=== PATIENT | female | born 1955 | race Caucasian/White ===

== ENCOUNTER 2016-02-25 16:59 | Emergency (ER) | payer OTHER ==
[~2016-02-25] VITALS: Wt 63.0 kg
--- NOTE | 2016-02-25 18:15 | RADRPT ---
PROCEDURE: Chest x-ray CLINICAL INDICATION: Cough TECHNIQUE: Chest single view COMPARISON: 03/10/2014 FINDINGS: The heart is normal in size. The pulmonary vessels are normal in caliber. The lungs are clear. Th e costophrenic angles are sharp. The visualized bony thorax is unremarkable. IMPRESSION: No acute cardiopulmonary disease. RPTAT: HH .Jay Rosario MD, Date Time Electronically viewed and signed by .Jay Rosario MD, on 02/25/2016 18:15 .W/
[2016-02-25] MEDS ORDERED: D-ME473S18 PO (18:43)
[2016-02-25] MEDS ORDERED: ACET500C5 PO (18:43)
[2016-02-25] MEDS ORDERED: AZIT250T94 PO (18:43)
--- NOTE | 2016-02-25 18:45 | ERD ---
ER Documentation Chief Complaint Date/Time DATE: 02/25/16 TIME: 18:44 Chief Complaint cough cold and intermittent fevers for the past 3 wks HPI This 61-year-old female presents with a productive cough for last 3 weeks. She is here with her spouse with similar symptoms. She denies fevers, chest pain, vomiting, abdominal pain, diarrhea, neck stiffness. ROS All systems reviewed and are negative except as per history of present illness. Medications Home Meds Active Scripts Acetaminophen* (Tylophen*) 500 Mg Capsule, 1 CAP PO Q6H Y for PAIN AND OR ELEVATED TEMP, #15 CAP Prov:ROBYN GREGORY MD 02/25/16 Dextromethorphan Hb-Promethazine Hcl (Promethazine DM Syrup) 473 Ml Syrup, 5 ML PO Q6H, #4 OZ Prov:ROBYN GREGORY MD 02/25/16 Azithromycin* (Zithromax*) 250 Mg Tablet, 250 MG PO .ZPACK DIRECTED, #6 TAB TAKE 500 MG (2 TABS) THE FIRST DAY THEN 250 MG (1 TAB) DAYS 2-5 Prov:ROBYN GREGORY MD 02/25/16 Allergies Allergies: Coded Allergies: No Known Allergy (Unverified , 03/10/14) PMhx/Soc Medical and Surgical Hx: pt denies Medical Hx, pt denies Surgical Hx History of Surgery: No Anesthesia Reaction: No Hx Neurological Disorder: No Hx Respiratory Disorders: No Hx Cardiac Disorders: No Hx Psychiatric Problems: No Hx Miscellaneous Medical Probl: No Hx Alcohol Use: No Hx Substance Use: No Hx Tobacco Use: No Smoking Status: Never smoker Physical Exam Vitals Vital Signs Date Time Temp Pulse Resp B/P Pulse Ox O2 Delivery O2 Flow Rate FiO2 02/25/16 17:05 98.9 95 20 141/68 98 Physical Exam Const: [] Alert, [id number]. Head: Atraumatic Eyes: Normal Conjunctiva ENT: Normal External Ears, Nose and Mouth. Neck: Full range of motion..~ No meningismus. Resp: Clear to auscultation bilaterally. Slight rhonchi without rales, wheezing, retractions. Cardio: Regular rate and rhythm, no murmurs Abd: Soft, non tender, non distended. Normal bowel sounds Skin: No petechiae or rashes Back: No midline or flank tenderness Ext: No cyanosis, or edema Neur: Awake and alert Psych: Normal Mood and Affect Procedures/MDM Chest X-ray 1V Interpreted by me: Soft Tissue: No acute abnormalities Bones: No acute abnormalities Mediastinum/Cardiac Silhouette/Lungs: [No acute abnormalities]. Impression- normal 1 view chest x-ray Patient presents with URI symptoms and productive cough for 3 weeks. She will be treated with Zithromax and promethazine. The patient was stable with no new complaints during the ER course. Clinically, there is no current evidence to suggest meningitis, sepsis, acute abdomen, pneumonia, acute coronary syndrome, pulmonary embolism, or any other emergent condition appearing to require further evaluation or hospitalization. The patient should certainly return for any new or worsening symptoms per the aftercare instructions. They should otherwise follow-up with her primary care doctor for reevaluation this week. Departure Diagnosis: Primary Impression: Bronchitis Condition: Stable Patient Instructions: Acute Bronchitis Additional Instructions: X-ray normal. Examines normal hoy. Cheque otro vez con rudolph doctor primario en el proximo dougherty or regresa para mas o nueva simptomas. ROBYN GREGORY MD Feb 25, 2016 18:44
== END 2016-02-25 19:12 | disposition home or self-care (01) ==
LOC: FTE 16:59
DX: J20.9 Acute bronchitis, unspecified (principal)
CPT/HCPCS: 71010; Z7502

== ENCOUNTER 2017-02-16 12:06 | Emergency (ER) | END 2017-02-16 15:16 | disposition home or self-care (01) ==